=== PATIENT | female | born 1970 | race Caucasian/White ===

== ENCOUNTER 2018-06-08 08:53 | Emergency (ER) | payer MEDICAID ==
--- NOTE | 2018-06-08 16:05 | ED Physician Chart ---
ED Chief Complaint/HPI - Patient Information Date Seen:: 06/08/18 Time Seen:: 09:10 Allergies:: Allergies Allergy/AdvReac Type Severity Reaction Status Date / Time Penicillins [PCN] Allergy Verified 06/08/18 09:08 sulfamethoxazole Allergy Verified 06/08/18 09:08 [From Bactrim] trimethoprim [From Bactrim] Allergy Verified 06/08/18 09:08 nuts Allergy Uncoded 06/08/18 09:08 Vitals:: Vital Signs - 8 hr 06/08/18 09:08 Temp 97.5 F HR 103 RR 18 BP 130/96 O2 Sat % 99 Historian:: Patient Review:: Nurse's Note Reviewed ED Review of Systems - Review of Systems General/Constitutional: No fever Skin: No skin lesions Head: No headache Eyes: No loss of vision ENT: No earache Neck: No neck pain Cardio Vascular: No chest pain Pulmonary: Cough GI: Other (discomfort with medicine e mycin) G/U: No dysuria Field Aide: No abnormal vaginal bleed Musculoskeletal: No bone or joint pain Endocrine: No polyuria Psychiatric: No prior psych history Hematopoietic: No bruising Allergic/Immuno: No urticaria Neurological: No syncope ED Past Medical History - Past Medical History Past Medical History: No significant medical hx Family History: None Social History: Homeless Surgical History: None Psychiatricy History: None Medication: Reviewed (emycin) Family Medical History - Family Member Grandmother Hx Family Cancer: No Hx Family Coronary Artery Disease: No Hx Family Congestive Heart Failure: No Hx Family Hypertension: No Hx Family Stroke: No Hx Family Diabetes: No Hx Family Seizures: No Hx Family Dementia: No Hx Family AIDS: No Hx Family HIV: No Hx Family COPD: No Hx Family Hepatitis: No Hx Family Psychiatric Problems: No Hx Family Tuberculosis: No Other Medical History: CANCER ED Physical Exam - Physical Examination General/Constitutional: Awake, Alert, No distress, GCS 15, Non-toxic appearing, Ambulatory Head: Atraumatic Eyes: Lids, conjuctiva normal Skin: Nl inspection ENMT: External ears, nose nl Neck: Nontender, Full ROM w/o pain Respiratory: Nl effort/Exclusion Other Respiratory comments:: eqivocal musical rales Cardio Vascular: RRR GI: No tenderness/rebounding/guarding : No CVA tenderness Extremities: No tenderness or effusion, normal strength in all extremities Neuro/Psych: Alert/oriented Misc: Normal back ED Assessment - Assessment General Assessment: hx of brochitis on e mycin STOP given Rx zpack ED Septic Shock - . Is Septic Shock (SBP<90, OR Lactate>4 mmol\L) present?: No - <6hrs of presentation: Vital Signs: Vital Signs - 8 hr 06/08/18 09:08 Temp 97.5 F HR 103 RR 18 BP 130/96 O2 Sat % 99 ED Reassessment (Disposition) - Reassessment Reassessment Condition:: Unchanged (follow up with pmd as soon as possible)
== END 2018-06-08 09:50 | disposition home or self-care (01) ==
LOC: ER 08:53
DX: R05 Cough (principal); J40 Bronchitis, not specified as acute or chronic; Z59.0 Homelessness; Z88.0 Allergy status to penicillin; Z88.1 Allergy status to other antibiotic agents; Z88.2 Allergy status to sulfonamides; Z91.018 Allergy to other foods
CPT/HCPCS: Z7502